=== PATIENT | male | born 1985 | race Caucasian/White ===

== ENCOUNTER 2017-01-08 10:16 | Emergency (ER) | payer MEDICAID ==
[2017-01-08] MEDS ORDERED: TORAdol 30 mg Injection IM ONE (11:06)
[2017-01-08] MEDS ORDERED: DECADRON 10MG INJ. IM ONE (11:06)
[2017-01-08] MEDS ORDERED: Norflex 60 MG/2 ML IM ONE (11:06)
[2017-01-08] MEDS ORDERED: Norflex 60 MG/2 ML ONE (11:09)
[2017-01-08] MEDS ORDERED: TORAdol 30 mg Injection ONE (11:09)
[2017-01-08] MEDS ORDERED: DECADRON 10MG INJ. ONE (11:09)
[2017-01-08 11:22] VITALS: BP 118/69; PULSE 105; O2SAT 95
--- NOTE | 2017-01-08 11:22 | ERPHSYRPT ---
- History of Present Illness Time Seen by Provider: 01/08/17 10:23 Source: patient Patient Subjective Stated Complaint: LOWER BACK PAIN STARTED LAST TUESDAY. DENIES INJURY Triage Nursing Assessment: AMBULATED TO ROOM HOLDING LOWER BACK. SKIN W/D, COLOR NORMAL, RESP EASY. LOWER TRIM SAWYER. ALSO HAVING NUMBNESS IN RIGHT GREAT TOE AND FINGERS ON BOTH HANDS FOR ONE MONTH. GOOD PEDAL PULSES, FEET WARM AND GOOD CAP REFILL. Physician History: CC: back pain Hx: 31 y/o male patient with no local doctor has 5 day hx of low back pain, worse on right. No fever, urinary difficulty, incontinence, hx of CA. No fall or injury. Pain worse and he could not sleep last night. Pain worse with movement and is moderately severe. No hx of this in the past. 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 He has tingling in right great toe, both hands 3 fingers for a few months unchanged now. Timing/Duration: day(s) (5) Back Pain Location: lumbar spine Severity of Pain-Max: moderate Severity of Pain-Current: moderate Allergies/Adverse Reactions: No Known Drug Allergies Allergy (Verified 01/08/17 10:28) Hx Tetanus, Diphtheria Vaccination/Date Given: No (UNSURE) Hx Influenza Vaccination/Date Given: Yes Hx Pneumococcal Vaccination/Date Given: No - Review of Systems Constitutional: No Fever, No Chills Respiratory: No Cough, No Dyspnea Cardiac: No Chest Pain Abdominal/Gastrointestinal: No Abdominal Pain Genitourinary Symptoms: No Dysuria, No Hematuria, No Flank Pain, No Testicle Pain Musculoskeletal: Back Pain, No Fall, No Injury Neurological: No Focal Weakness, No Parasthesia All Other Systems: Reviewed and Negative - Past Medical History Pertinent Past Medical History: No - Past Surgical History Past Surgical History: Yes Gastrointestinal: Appendectomy, Hernia Repair - Social History Smoking Status: Never smoker Exposure to second hand smoke: No Drug Use: none Patient Lives Alone: No (here with family) - Nursing Vital Signs Temperature: 99.5 F Temperature Source: Oral Pulse Rate: 105 Respiratory Rate: 20 Pain Intensity: 10 - Physical Exam General Appearance: alert, obese, other (pleasant man) Eye Exam: PERRL/EOMI Ears, Nose, Throat Exam: normal ENT inspection, moist mucous membranes Neck Exam: normal inspection, non-tender, supple Respiratory Exam: normal breath sounds, lungs clear Cardiovascular Exam: regular rate/rhythm Gastrointestinal Exam: soft, No tenderness, No distention Male Genetalia Exam: normal genitalia Back Exam: normal inspection, point tenderness (right low back area), No vertebral tenderness Extremity Exam: normal inspection, normal range of motion Neurologic Exam: alert, oriented x 3, cooperative, 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 IM 01/08/17 11:07 STAT ONE Dexamethasone Sodium Phosphate Confirm 01/08/17 11:09 Decadron 10mg Inj. Administered 01/08/17 11:10 Dose 10 mg .ROUTE .STK-MED ONE Ketorolac Tromethamine 60 mg 01/08/17 11:06 Toradol 30 Mg Injection IM 01/08/17 11:07 STAT ONE Ketorolac Tromethamine Confirm 01/08/17 11:09 Toradol 30 Mg Injection Administered 01/08/17 11:10 Dose 60 mg .ROUTE .STK-MED ONE Orphenadrine Citrate 60 mg 01/08/17 11:06 Norflex 60 Mg/2 Ml IM 01/08/17 11:07 STAT ONE Orphenadrine Citrate Confirm 01/08/17 11:09 Norflex 60 Mg/2 Ml Administered 01/08/17 11:10 Dose 60 mg .ROUTE .STK-MED ONE - Progress Progress Note: 01/08/17 11:20 Pt stable. No red flag warning signs and no hx of injury. Norflex, toradol, decadron given. Advised primary care follow up as may need MRI, physical therapy , etc. Back pain instr given. Counseled pt/family regarding: diagnosis, need for follow-up - Departure Time of Disposition: 11:21 Departure Disposition: Home Clinical Impression: Low back pain Qualifiers: Chronicity: acute Back pain laterality: right Sciatica presence: with sciatica Sciatica laterality: sciatica of right side Qualified Code(s): M54.41 - Lumbago with sciatica, right side Condition: Stable Critical Care Time: No Referrals: DOCTOR,NO FAMILY [Primary Care Provider] - Instructions: Low Back Pain Additional Instructions: BACK INJURY 1. May apply moist heat frequently for relief of pain. Take care not to burn the skin. Do not use heat for more than 30 minutes at a time. 2. Try to sleep on a firm bed, flat on your back. 3. If no improvement is noticed in 2-3 days, follow up with your family physician. 4. If you notice any numbness, tingling, weakness, or problems with your bowel or bladder, you should call your family physician or return to the emergency department. No driving or operating machinery today or while taking norflex. Follow up next week with primary care- list given. Rx norflex. Rx motrin=ibuprofen. Return for problems or concerns. Prescriptions: Ibuprofen 600 mg PO Q6H PRN PRN #24 tablet PRN Reason: Pain Orphenadrine Citrate 100 mg [Norflex 100 MG Tablet] 1 tab PO BID #10 tab
== END 2017-01-08 11:30 | disposition home or self-care (01) ==
LOC: ED 10:16
DX: M54.41 Lumbago with sciatica, right side (principal); M54.5 Low back pain; R20.0 Anesthesia of skin
CPT/HCPCS: 96372; 99284; J1100; J1885; J2360

== ENCOUNTER 2020-07-06 16:33 | Emergency (ER) | payer MEDICAID, OTHER ==
[2020-07-06] MEDS ORDERED: CLEOCIN 150 MG CAPSULE PO ONE (17:22)
[2020-07-06] MEDS ORDERED: CLEOCIN 150 MG CAPSULE ONE (17:25)
--- NOTE | 2020-07-06 17:28 | ERPHSYRPT ---
- History of Present Illness Time Seen by Provider: 07/06/20 17:13 Source: patient Exam Limitations: no limitations Patient Subjective Stated Complaint: Swelling to face Triage Nursing Assessment: Patient ambulated back to ED and transferred self to bed. Patient A+O X3. Patient's skin pink, warm and dry. Patient complains of swelling to side of left face. Patient has red raised area to left side of forehead that is head and warm. Patient states the area is sore to touch. Patient has edema noted around left eye. Physician History: 35 years old morbidly obese male presented in the ER with chief complaint of left temporal area possible insect/spider bite 2 days ago with gradually worsening swelling and redness around and having some puffiness of upper lid today but no difficulty movements of eyeball. Denies any difficulty vision. No fever or chills. Dull aching to sharp pain mild to moderate intensity. Up-to-date with immunizations. Timing/Duration: day(s) (2), sudden, worse Quality: burning, painful Severity: moderate Location: face Possible Causes: insect bite Associated Symptoms: denies symptoms Allergies/Adverse Reactions: No Known Drug Allergies Allergy (Verified 07/06/20 16:50) Hx Tetanus, Diphtheria Vaccination/Date Given: No (UNSURE) Hx Influenza Vaccination/Date Given: No Hx Pneumococcal Vaccination/Date Given: No Immunizations Up to Date: Yes Travel Risk - International Travel Have you traveled outside of the country in past 3 weeks: No - Coronavirus Screening Are you exhibiting any of the following symptoms?: No Close contact with a COVID-19 positive Pt in past 14-21 Days: No - Review of Systems Constitutional: No Symptoms Eyes: Itchy Ears, Nose, & Throat: No Symptoms Respiratory: No Symptoms Cardiac: No Symptoms Abdominal/Gastrointestinal: No Symptoms Musculoskeletal: No Symptoms Skin: Induration, Rash, Skin Lesions Neurological: No Symptoms Psychological: No Symptoms - Past Medical History Pertinent Past Medical History: No Neurological History: No Pertinent History ENT History: No Pertinent History Cardiac History: No Pertinent History Respiratory History: No Pertinent History Endocrine Medical History: No Pertinent History Musculoskeletal History: No Pertinent History GI Medical History: No Pertinent History History: No Pertinent History Psycho-Social History: No Pertinent History Male Reproductive Disorders: No Pertinent History - Past Surgical History Past Surgical History: Yes Neuro Surgical History: No Pertinent History Cardiac: No Pertinent History Respiratory: No Pertinent History Gastrointestinal: Appendectomy, Hernia Repair Genitourinary: No Pertinent History Musculoskeletal: Orthopedic Surgery Male Surgical History: No Pertinent History Other Surgical History: Right shoulder repair - Social History Smoking Status: Never smoker Exposure to second hand smoke: No Drug Use: none Patient Lives Alone: No - Nursing Vital Signs Nursing Vital Signs: Initial Vital Signs Temperature 98.0 F 07/06/20 16:51 Pulse Rate 98 H 07/06/20 16:51 Respiratory Rate 18 07/06/20 16:51 Blood Pressure 183/119 07/06/20 16:51 O2 Sat by Pulse Oximetry 95 07/06/20 16:51 Pain Scale Pain Intensity 0 - Physical Exam General Appearance: no apparent distress Eye Exam: PERRL/EOMI, eyes nml inspection, other (Upper lid puffiness but no erythema. Intact range of motion of eyeball) Ears, Nose, Throat Exam: normal ENT inspection, TMs normal, pharynx normal, other (Left temporal area of bite leslie with induration/swelling around. Warm and tender to touch. Puffiness of upper lid. 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 Started on clindamycin. Recommended Tylenol ibuprofen as needed and outpatient follow-up. At this point no signs of preseptal/septal orbital cellulitis. Discussed signs symptoms of worsening needing return to ER which he seems understanding. Counseled pt/family regarding: diagnosis, need for follow-up - Departure Departure Disposition: Home Clinical Impression: Insect bite Qualifiers: Encounter type: initial encounter Site of insect bite: head Site of insect bite of head: other part Qualified Code(s): S00.96XA - Insect bite (nonvenomous) of unspecified part of head, initial encounter; W57.XXXA - Bitten or stung by nonvenomous insect and other nonvenomous arthropods, initial encounter Condition: Stable Critical Care Time: No Referrals: DOCTOR,NO FAMILY [Primary Care Provider] - CLINT MENDOZA MD [ACTIVE STAFF] - Follow Up with PCP/3 days Instructions: Dependent Edema (DC) Additional Instructions: Take Tylenol/ibuprofen as needed for pain. Follow-up with primary care physician for reevaluation. Return to ER for increasing swelling redness discharge/fever chills, difficulty movements of eyeball are erythema redness of lids. Prescriptions: Clindamycin HCl 150 mg [Cleocin 150 mg Capsule] 2 cap PO QID #56 capsule
[2020-07-06 17:40] VITALS: BP 173/96; PULSE 88; O2SAT 93
== END 2020-07-06 17:40 | disposition home or self-care (01) ==
LOC: ED 16:33
DX: S00.86XA Insect bite (nonvenomous) of other part of head, initial encounter (principal); W57.XXXA Bitten or stung by nonvenomous insect and other nonvenomous arthropods, initial encounter
CPT/HCPCS: 99283; A9270-GY